=== PATIENT | female | born 2000 | race Caucasian/White ===

== ENCOUNTER 2023-03-26 12:39 | Inpatient (IN) | payer BC ==
[~2023-03-26] VITALS: Ht 162.6 cm; Wt 46.7 kg
--- NOTE | 2023-03-26 12:59 | NUR ---
AMBULATED TO BED IN NO DISTRESS.
[2023-03-26 13:00] VITALS: BP 103/63
[2023-03-26] MEDS ORDERED: diphenhydrAMINE 50 MG/ML VIAL IVP ONE (13:20)
[2023-03-26] MEDS ORDERED: METOCLOPRAMIDE 10 MG/2 ML INJ VIAL IVP ONE (13:20)
[2023-03-26] MEDS ORDERED: NACL 0.9% 1,000 ML IV ONE (13:20)
[2023-03-26 13:51] LABS: HEMOGLOBIN 12.9 g/dL (12.0-16.0); RED CELL DISTRIBUTION WIDTH 13.3 % (11.6-13.7)
[2023-03-26 13:52] LABS: APPEARANCE,URINE CLEAR (CLEAR); BILIRUBIN,URINE NEGATIVE (NEGATIVE); BLOOD, URINE TRACE-I (NEGATIVE); COLOR,URINE YELLOW (YELLOW); LEUKOCYTE ESTERASE ,URINE TRACE (NEGATIVE); NITRITE, URINE NEGATIVE (NEGATIVE); UGLUCOSE NEGATIVE (NEGATIVE)
--- NOTE | 2023-03-26 14:00 | NUR ---
22 y/o female refered here from Dr. Chavez's office. Patient is having nausea and vomiting with feeling faint. Patient is note actively vomiting at assessment. LMP 01/20/23 Medical History: Hyperemesis Gravidarum NKDA
[2023-03-26 14:03] LABS: BASOPHILS % (AUTO) 0.1 % (0.0-2.0); EOSINOPHILS # (AUTO) 0.1 K/uL (0-0.4); EOSINOPHILS % (AUTO) 0.9 % (0.0-4.0); HEMATOCRIT 36.9 % (36-48); LYMPHOCYTES # (AUTO) 1.8 K/uL (2.5-16.5); LYMPHOCYTES % (AUTO) 16.2 % (20.5-51.1); MEAN CORPUSCULAR HEMOGLOBIN 31 pg (27-31); MEAN CORPUSCULAR HGB CONC 35 g/dL (33-37); MEAN CORPUSCULAR VOLUME 87.6 fL (80-94); MONOCYTES # (AUTO) 0.5 K/uL (0.8-1.0); NEUTROPHILS # (AUTO) 8.6 K/uL (1.8-7.7); NEUTROPHILS % (AUTO) 77.8 % (42.2-75.2); PLATELET COUNT (AUTO) 244 K/uL (140-450); RED BLOOD CELL COUNT(AUTO) 4.21 MIL/uL (4.20-5.40)
[2023-03-26 14:10] LABS: RBC,URINE 0-5 /HPF (0-5); TRICHOMONAS,URINE None Seen /HPF (None Seen); YEAST,URINE None Seen /HPF (None Seen)
[2023-03-26 14:25] LABS: ALBUMIN 3.7 g/dL (3.4-5.0); ANION GAP 10.9 (8-16); CARBON DIOXIDE 25.9 mmol/L (21-32); CREATININE 0.6 mg/dL (0.6-1.3); POTASSIUM 3.8 mmol/L (3.5-5.1); TOTAL BILIRUBIN 0.5 mg/dL (0.0-1.0)
--- NOTE | 2023-03-26 14:40 | NUR ---
The patient's care was reviewed and supervised by GERI JOSEPH RN.
[2023-03-26] MEDS ORDERED: METO-485 PO (14:48)
[2023-03-26] MEDS ORDERED: CEPH-588 PO (14:48)
[2023-03-26] MEDS ORDERED: DIPH50CA69 PO (14:48)
--- NOTE | 2023-03-26 14:48 | NUR ---
med rec complete
[2023-03-26] MEDS ORDERED: LACTATED RINGERS 1,000 ML IV SCH (15:30)
[2023-03-26] MEDS ORDERED: LACTATED RINGERS 500 ML IV SCH (15:30)
--- NOTE | 2023-03-26 16:05 | NUR ---
Patient will be admitted to care of Dr. Chavez. Admited to [facility]. Will go to room 212. Belongings list completed. Report to SANDI Fajardo.
[2023-03-26 16:11] VITALS: BP 107/67
[2023-03-26] MEDS ORDERED: PANTOPRAZOLE 40 MG INJ VIAL ONE (16:28)
[2023-03-26] MEDS ORDERED: ONDANSETRON 4 MG/2 ML VIAL ONE (16:28)
[2023-03-26] MEDS ORDERED: cefTRIAXone 1,000 MG VIAL ONE (16:49)
[2023-03-26] MEDS: NACL 0.9% 1,000 ML IV SCH (16:52)
[2023-03-26] MEDS ORDERED: PRETAB PO (17:15)
[2023-03-26] MEDS ORDERED: diphenhydrAMINE 50 MG/ML VIAL IVP SCH (18:00)
[2023-03-26] MEDS ORDERED: diphenhydrAMINE 50 MG/ML VIAL ONE (20:36)
[2023-03-26] MEDS: METOCLOPRAMIDE 10 MG/2 ML INJ VIAL IVP SCH (20:44)
[2023-03-26] MEDS: diphenhydrAMINE 50 MG/ML VIAL IVP SCH (20:51)
[2023-03-26] MEDS: ONDANSETRON 4 MG/2 ML VIAL IVP SCH (22:38)
[2023-03-27] MEDS: NACL 0.9% 1,000 ML IV SCH ×5 (01:07→23:42)
[2023-03-27] MEDS: METOCLOPRAMIDE 10 MG/2 ML INJ VIAL IVP SCH ×4 (03:34→21:30)
[2023-03-27] MEDS: diphenhydrAMINE 50 MG/ML VIAL IVP SCH ×4 (03:36→22:30)
[2023-03-27] MEDS: ONDANSETRON 4 MG/2 ML VIAL IVP SCH ×3 (04:36→18:42)
--- NOTE | 2023-03-27 07:09 | NUR ---
PATIENT HAS BEEN SCREENED AND CATEGORIZED HIGH NUTRITION RISK. PATIENT WILL BE SEEN WITHIN 1-2 DAYS OF ADMISSION. 03/26/23-03/28/[address]
[2023-03-27] MEDS: PANTOPRAZOLE 40 MG INJ VIAL IVP SCH (09:25)
[2023-03-27] MEDS ORDERED: FAMOTIDINE 20 MG/2 ML VIAL IVP SCH (10:14)
[2023-03-27 11:02] LABS: ALBUMIN 3.3 g/dL (3.4-5.0); ANION GAP 8.2 (8-16); CARBON DIOXIDE 25.6 mmol/L (21-32); CREATININE 0.6 mg/dL (0.6-1.3); POTASSIUM 3.8 mmol/L (3.5-5.1); TOTAL BILIRUBIN 0.4 mg/dL (0.0-1.0)
[2023-03-27] MEDS: FAMOTIDINE 20 MG/2 ML VIAL IVP SCH (12:17)
--- NOTE | 2023-03-27 15:23 | NUR ---
03/27/23 RD INITIAL ASSESSMENT COMPLETED. PLEASE REFER TO NUTRITION ASSESSMENT UNDER CARE ACTIVITY FOR ESTIMATED NUTRITIONAL NEEDS. 1. CONTINUE REGULAR DIET TOLERATED 2. RECOMMEND ENSURE 1X/DAY TO OPTIMIZE NUTRITIONAL NEEDS 3. RD TO FOLLOW-UP 2-3 DAYS, HIGH RISK IVY NOGUEIRA RD
[2023-03-28] MEDS: FAMOTIDINE 20 MG/2 ML VIAL IVP SCH (00:14)
[2023-03-28] MEDS: ONDANSETRON 4 MG/2 ML VIAL IVP SCH ×2 (00:22→06:23)
[2023-03-28] MEDS: METOCLOPRAMIDE 10 MG/2 ML INJ VIAL IVP SCH ×2 (03:25→09:22)
[2023-03-28] MEDS: diphenhydrAMINE 50 MG/ML VIAL IVP SCH (04:28)
[2023-03-28] MEDS: PANTOPRAZOLE 40 MG INJ VIAL IVP SCH (09:25)
== END 2023-03-28 11:10 | disposition home or self-care (01) | DRG 566 ==
LOC: MED 12:39 → MTU 14:38 → MFCC 15:30
PROVIDERS: ADMIT Obstetrics & Gynecology; ATTEND Obstetrics & Gynecology
DX: O21.0 Mild hyperemesis gravidarum (principal); O23.41 Unspecified infection of urinary tract in pregnancy, first trimester; E86.0 Dehydration; Z20.822 Contact with and (suspected) exposure to COVID-19; Z3A.09 9 weeks gestation of pregnancy; N39.0 Urinary tract infection, site not specified
CPT/HCPCS: 36415; 76801; 80053; 81001; 83690; 84702; 85025; 87086; 96361; 96374; 96375; 99285; C9113; J0696; J1200; J2405; J2765; J3490; J7060; J7120; Q0092

== ENCOUNTER 2023-03-30 20:54 | Inpatient (IN) | payer BC ==
[~2023-03-30] VITALS: Ht 162.6 cm; Wt 46.3 kg
[~2023-03-30 20:54] MED LIST: DIPH50CA69 PO; METO-485 PO; PRETAB PO
--- NOTE | 2023-03-30 20:55 | NUR ---
PATIENT CALLED TO BE TRIAGE, NO RESPONSE PATIENT LEFT WITHOUT BEING SEEN BY DR. HEMPHILL. NO FURTHER CARE PROVIDED FOR PATIENT.
--- NOTE | 2023-03-30 21:00 | NUR ---
CALLED FOR THE SECOND TIME, NO RESPONSE
[2023-03-30 21:23] VITALS: BP 107/61
--- NOTE | 2023-03-30 21:30 | NUR ---
CALLED FOR THE THIRD TIME , NO RESPONSE
[2023-03-30] MEDS ORDERED: METO-486 PO (21:44)
[2023-03-30] MEDS ORDERED: PANT40PK PO (21:44)
[2023-03-30] MEDS ORDERED: DOXY1TCP PO (21:44)
[2023-03-30] MEDS ORDERED: DIPH25TA53 PO (21:44)
[2023-03-30 22:00] LABS: BASOPHILS % (AUTO) 0.1 % (0.0-2.0); EOSINOPHILS # (AUTO) 0.1 K/uL (0-0.4); EOSINOPHILS % (AUTO) 1.3 % (0.0-4.0); HEMOGLOBIN 11.2 g/dL (12.0-16.0); LYMPHOCYTES % (AUTO) 20.2 % (20.5-51.1); MEAN CORPUSCULAR HEMOGLOBIN 31 pg (27-31); MEAN CORPUSCULAR HGB CONC 35 g/dL (33-37); MEAN CORPUSCULAR VOLUME 87.3 fL (80-94); MONOCYTES # (AUTO) 0.7 K/uL (0.8-1.0); MONOCYTES % (AUTO) 7.4 % (1.7-9.3); NEUTROPHILS # (AUTO) 7.2 K/uL (1.8-7.7); PLATELET COUNT (AUTO) 220 K/uL (140-450); RED BLOOD CELL COUNT(AUTO) 3.67 MIL/uL (4.20-5.40); RED CELL DISTRIBUTION WIDTH 13.1 % (11.6-13.7); WHITE BLOOD COUNT (AUTO) 10.1 K/uL (4.8-10.8)
[2023-03-30 22:36] LABS: ALBUMIN 3.4 g/dL (3.4-5.0); CARBON DIOXIDE 27.8 mmol/L (21-32); CREATININE 0.6 mg/dL (0.6-1.3); POTASSIUM 3.8 mmol/L (3.5-5.1); TOTAL BILIRUBIN 0.2 mg/dL (0.0-1.0)
[2023-03-30] MEDS: LACTATED RINGERS 1,000 ML IV SCH ×2 (23:01→23:53)
[2023-03-30] MEDS: ONDANSETRON 4 MG/2 ML VIAL IVP SCH (23:59)
[2023-03-31] MEDS: LACTATED RINGERS 1,000 ML IV SCH ×3 (05:59→18:06)
[2023-03-31] MEDS: diphenhydrAMINE 50 MG/ML VIAL IVP SCH ×5 (06:00→23:57)
[2023-03-31] MEDS: ONDANSETRON 4 MG/2 ML VIAL IVP SCH ×4 (06:01→23:57)
[2023-03-31] MEDS: METOCLOPRAMIDE 10 MG/2 ML INJ VIAL IVP SCH ×2 (09:19→21:01)
[2023-03-31] MEDS: FAMOTIDINE 20 MG/2 ML VIAL IVP SCH ×2 (09:26→21:00)
--- NOTE | 2023-03-31 09:26 | NUR ---
PATIENT HAS BEEN SCREENED AND CATEGORIZED LOW NUTRITION RISK. PATIENT WILL BE SEEN WITHIN 7 DAYS OF ADMISSION. 04/06/23 REVIEWED BY [address]STINA S[address]Z RD
[2023-03-31] MEDS: PANTOPRAZOLE 40 MG INJ VIAL IVP SCH (09:29)
[2023-04-01] MEDS: LACTATED RINGERS 1,000 ML IV SCH ×2 (00:26→07:02)
[2023-04-01] MEDS: diphenhydrAMINE 50 MG/ML VIAL IVP SCH (05:58)
[2023-04-01] MEDS: ONDANSETRON 4 MG/2 ML VIAL IVP SCH (05:59)
[2023-04-01] MEDS: PANTOPRAZOLE 40 MG INJ VIAL IVP SCH (08:55)
[2023-04-01] MEDS: FAMOTIDINE 20 MG/2 ML VIAL IVP SCH (08:56)
[2023-04-01] MEDS: METOCLOPRAMIDE 10 MG/2 ML INJ VIAL IVP SCH (08:57)
== END 2023-04-01 09:10 | disposition home or self-care (01) | DRG 566 ==
LOC: MED 20:54 → MFCC 20:55 → MLD 21:03 → MFCC 21:20 → OBSVTOIN 21:23
PROVIDERS: ADMIT Obstetrics & Gynecology; ATTEND Obstetrics & Gynecology
DX: O21.0 Mild hyperemesis gravidarum (principal); D64.9 Anemia, unspecified; O99.011 Anemia complicating pregnancy, first trimester; Z20.822 Contact with and (suspected) exposure to COVID-19; Z79.899 Other long term (current) drug therapy; Z3A.10 10 weeks gestation of pregnancy
CPT/HCPCS: 36415; 80053; 85025; 99285; C9113; J1200; J2405; J2765; J3490

== ENCOUNTER 2023-04-02 15:26 | Emergency (ER) | payer BC ==
[~2023-04-02] VITALS: Ht 162.6 cm; Wt 46.9 kg
[~2023-04-02 15:26] MED LIST changes: +DIPH25TA53 PO; +DOXY1TCP PO; +METO-486 PO; +PANT40PK PO
[2023-04-02 15:51] VITALS: BP 116/74
--- NOTE | 2023-04-02 16:00 | NUR ---
PATIENT AMBULATED TO BED 4 WITH SIGNIFICANT OTHER.
--- NOTE | 2023-04-02 16:00 | NUR ---
here for nausea and vomiting, no abd pain, no distress noted, sr up times 2, pa at bs, o2 sat 98% ra
--- NOTE | 2023-04-02 16:07 | NUR ---
CONTACTED DR YAN FOR CONSULT, STATES IF IT IS DR HENSLEY'S PT TO CONTACT HIM.
[2023-04-02] MEDS ORDERED: NACL 0.9% 1,000 ML IV ONE (16:10)
[2023-04-02] MEDS ORDERED: ONDANSETRON 4 MG/2 ML VIAL IVP ONE (16:15)
[2023-04-02 16:25] LABS: BASOPHILS % (AUTO) 0.2 % (0.0-2.0); EOSINOPHILS % (AUTO) 0.3 % (0.0-4.0); HEMATOCRIT 35.5 % (36-48); HEMOGLOBIN 12.2 g/dL (12.0-16.0); LYMPHOCYTES # (AUTO) 1.1 K/uL (2.5-16.5); LYMPHOCYTES % (AUTO) 10.1 % (20.5-51.1); MEAN CORPUSCULAR HEMOGLOBIN 30 pg (27-31); MEAN CORPUSCULAR HGB CONC 34 g/dL (33-37); MEAN CORPUSCULAR VOLUME 87.8 fL (80-94); MONOCYTES # (AUTO) 0.6 K/uL (0.8-1.0); MONOCYTES % (AUTO) 5.5 % (1.7-9.3); NEUTROPHILS # (AUTO) 8.8 K/uL (1.8-7.7); NEUTROPHILS % (AUTO) 83.9 % (42.2-75.2); PLATELET COUNT (AUTO) 226 K/uL (140-450); RED BLOOD CELL COUNT(AUTO) 4.04 MIL/uL (4.20-5.40); WHITE BLOOD COUNT (AUTO) 10.5 K/uL (4.8-10.8)
[2023-04-02 16:39] LABS: ALBUMIN 3.8 g/dL (3.4-5.0); CARBON DIOXIDE 26.9 mmol/L (21-32); CREATININE 0.6 mg/dL (0.6-1.3); POTASSIUM 3.9 mmol/L (3.5-5.1); TOTAL BILIRUBIN 0.4 mg/dL (0.0-1.0)
[2023-04-02 17:43] LABS: APPEARANCE,URINE CLEAR (CLEAR); BILIRUBIN,URINE NEGATIVE (NEGATIVE); BLOOD, URINE NEGATIVE (NEGATIVE); COLOR,URINE YELLOW (YELLOW); LEUKOCYTE ESTERASE ,URINE NEGATIVE (NEGATIVE); NITRITE, URINE NEGATIVE (NEGATIVE); UGLUCOSE NEGATIVE (NEGATIVE)
[2023-04-02 18:58] VITALS: BP 102/66
--- NOTE | 2023-04-02 19:01 | NUR ---
Signed Against medical Advice w Dr Melara. pt a/o times 4, ambulatory and steady gait, no n/v, no abd pain, denies any further questions.
== END 2023-04-02 18:52 | disposition left against medical advice (07) ==
LOC: MED 15:26
DX: O21.1 Hyperemesis gravidarum with metabolic disturbance (principal); Z20.822 Contact with and (suspected) exposure to COVID-19; Z3A.10 10 weeks gestation of pregnancy
CPT/HCPCS: 36415; 80053; 81003; 85025; 87426; 96361; 96374; 99283; J2405; J7030

== ENCOUNTER 2023-10-11 10:30 | Inpatient (IN) | payer BC ==
[~2023-10-11] VITALS: Ht 162.6 cm; Wt 63.5 kg
[~2023-10-11 10:30] MED LIST changes: -DIPH25TA53 PO; -METO-486 PO
[2023-10-11] MEDS ORDERED: ONDANSETRON 4 MG/2 ML VIAL IVP PRN (11:10)
[2023-10-11] MEDS ORDERED: OXYTOCIN 20 UNITS in LACTATED RINGERS 1,000 ML IV SCH (11:10)
[2023-10-11 12:57] LABS: BASOPHILS % (AUTO) 0.2 % (0.0-2.0); EOSINOPHILS # (AUTO) 0.1 K/uL (0-0.4); EOSINOPHILS % (AUTO) 0.4 % (0.0-4.0); HEMATOCRIT 31.5 % (36-48); HEMOGLOBIN 10.6 g/dL (12.0-16.0); LYMPHOCYTES # (AUTO) 1.7 K/uL (2.5-16.5); LYMPHOCYTES % (AUTO) 13.5 % (20.5-51.1); MEAN CORPUSCULAR HEMOGLOBIN 30 pg (27-31); MEAN CORPUSCULAR HGB CONC 34 g/dL (33-37); MEAN CORPUSCULAR VOLUME 88.1 fL (80-94); MONOCYTES # (AUTO) 0.9 K/uL (0.8-1.0); MONOCYTES % (AUTO) 7.4 % (1.7-9.3); NEUTROPHILS # (AUTO) 9.8 K/uL (1.8-7.7); NEUTROPHILS % (AUTO) 78.5 % (42.2-75.2); PLATELET COUNT (AUTO) 189 K/uL (140-450); RED BLOOD CELL COUNT(AUTO) 3.57 MIL/uL (4.20-5.40); WHITE BLOOD COUNT (AUTO) 12.5 K/uL (4.8-10.8)
[2023-10-11] MEDS: LACTATED RINGERS 1,000 ML IV SCH ×2 (13:12→20:11)
[2023-10-11 13:23] VITALS: BP 121/64; PULSE 95; RESP 17; TEMP 97.9
[2023-10-11] MEDS ORDERED: AMPICILLIN 2,000 MG in NACL 0.9% 100 ML IV SCH (13:45)
[2023-10-11 13:52] LABS: ALBUMIN 2.4 g/dL (3.4-5.0); ANION GAP 12.1 (8-16); CALCIUM 8.9 mg/dL (8.5-10.1); CARBON DIOXIDE 26.6 mmol/L (21-32); CREATININE 0.6 mg/dL (0.6-1.3); POTASSIUM 3.7 mmol/L (3.5-5.1); TOTAL BILIRUBIN 0.4 mg/dL (0.0-1.0); TOTAL PROTEIN, SERUM 6.3 g/dL (6.4-8.2)
[2023-10-11 13:58] LABS: BILIRUBIN,URINE NEGATIVE (NEGATIVE); BLOOD, URINE 3+ (NEGATIVE); COLOR,URINE YELLOW (YELLOW); LEUKOCYTE ESTERASE ,URINE 2+ (NEGATIVE); NITRITE, URINE NEGATIVE (NEGATIVE); PH,URINE 6.5 (5.0-9.0); PROTEIN,URINE NEGATIVE (NEGATIVE); UGLUCOSE NEGATIVE (NEGATIVE); UROBILINOGEN,URINE 0.2 EU/dL (0.2 - 1)
[2023-10-11 14:02] LABS: INR 0.87 (0.8-1.2); PARTIAL THROMBOPLASTIN TIME 24.5 secs (22-35.6); PROTHROMBIN TIME 9.2 secs (10.8-13.4)
[2023-10-11] MEDS ORDERED: PNV1TABL PO (14:08)
[2023-10-11 14:35] LABS: WBC,URINE 20-60 /HPF (0-5)
[2023-10-11 14:37] LABS: BACTERIA,URINE FEW /HPF (None Seen); RBC,URINE 0-5 /HPF (0-5); SQUAMOUS EPITHELIAL CELL,UR 4-10 (MOD) /LPF (0-3 (FEW))
[2023-10-11 14:38] LABS: YEAST,URINE Few /HPF (None Seen)
[2023-10-11 14:39] LABS: APPEARANCE,URINE HAZY (CLEAR)
[2023-10-11 14:48] LABS: AMPHETAMINE, URINE NEGATIVE ng/ml (NEG <=1000); BARBITURATE, URINE NEGATIVE ng/ml (NEG <=200); BENZODIAZEPINE, URINE NEGATIVE ng/mL (NEG <=200); CANNABINOID, URINE NEGATIVE ng/mL (NEG <=50); COCAINE, URINE NEGATIVE ng/mL (NEG <=300); OPIATE, URINE NEGATIVE ng/mL (NEG <=2000); PHENCYCLIDINE SCREEN,URINE NEGATIVE ng/mL (NEG <=25)
[2023-10-11] MEDS: MORPHINE SULFATE 10 MG/ML VIAL IVP PRN ×2 (17:02→20:08)
[2023-10-11] MEDS ORDERED: AMPICILLIN 1,000 MG in NACL 0.9% 50 ML IV SCH (18:00)
[2023-10-11 20:08] VITALS: BP 114/67; PULSE 76; RESP 18
[2023-10-11] MEDS ORDERED: CARBOPROST 250 MCG/ML AMP IM ONE (20:40)
[2023-10-11] MEDS ORDERED: METHYLERGONOVINE 0.2 MG/ML AMP IM PRN (20:40)
[2023-10-11] MEDS ORDERED: LIDOCAINE MPF 1% 10 MG/ML VIAL INJ SCH (20:40)
[2023-10-11] MEDS ORDERED: LIDOCAINE 1% 500 MG/50 ML VIAL ONE (21:58)
[2023-10-11] MEDS ORDERED: METOCLOPRAMIDE 10 MG/2 ML INJ VIAL ONE (22:30)
[2023-10-11] MEDS ORDERED: TERBUTALINE 1 MG/ML VIAL SUBQ ONE (22:41)
[2023-10-11] MEDS ORDERED: ceFAZolin 2,000 MG VIAL ONE (23:26)
[2023-10-11] MEDS ORDERED: MORPHINE PRES FREE 10 MG/10 ML AMP IV ONE (23:32)
[2023-10-12] MEDS ORDERED: OXYTOCIN 20 UNITS/LR PREMIX 1,000 ML IV ONE ×2 (00:20→14:33)
[2023-10-12] MEDS: OXYTOCIN 20 UNITS/LR PREMIX 1,000 ML IV ONE ×2 (00:58→01:30)
[2023-10-12] MEDS ORDERED: MEASLES, MUMPS, AND RUBELLA 1 VIAL SQVAC ONE (01:15)
[2023-10-12] MEDS ORDERED: METHYLERGONOVINE 0.2 MG/ML AMP IM PRN (01:15)
[2023-10-12] MEDS ORDERED: bisacodyL 5 MG TABEC PO PRN (01:15)
[2023-10-12] MEDS ORDERED: oxyCODONE/APAP 5/325 MG 1 TAB TAB PO PRN (01:15)
[2023-10-12] MEDS ORDERED: SIMETHICONE 80 MG TAB.CHEW PO PRN (01:15)
[2023-10-12] MEDS ORDERED: diphenhydrAMINE 50 MG/ML VIAL IVP PRN (02:10)
[2023-10-12] MEDS ORDERED: diphenhydrAMINE 50 MG/ML VIAL ONE (02:16)
[2023-10-12] MEDS ORDERED: OXYTOCIN 20 UNITS in LACTATED RINGERS 1,000 ML IV SCH ×2 (02:40→14:30)
[2023-10-12] MEDS ORDERED: ONDANSETRON 4 MG/2 ML VIAL IVP PRN (07:10)
[2023-10-12] MEDS ORDERED: KETOROLAC 30 MG/ML VIAL IVP PRN (07:10)
[2023-10-12] MEDS: KETOROLAC 30 MG/ML VIAL IVP PRN ×2 (13:59→21:39)
[2023-10-13 06:01] LABS: BASOPHILS % (AUTO) 0.1 % (0.0-2.0); EOSINOPHILS # (AUTO) 0.1 K/uL (0-0.4); EOSINOPHILS % (AUTO) 0.3 % (0.0-4.0); HEMATOCRIT 28.2 % (36-48); HEMOGLOBIN 9.5 g/dL (12.0-16.0); LYMPHOCYTES % (AUTO) 10.3 % (20.5-51.1); MEAN CORPUSCULAR HEMOGLOBIN 30 pg (27-31); MEAN CORPUSCULAR HGB CONC 34 g/dL (33-37); MEAN CORPUSCULAR VOLUME 88.3 fL (80-94); MONOCYTES # (AUTO) 1.1 K/uL (0.8-1.0); MONOCYTES % (AUTO) 5.5 % (1.7-9.3); NEUTROPHILS # (AUTO) 16.4 K/uL (1.8-7.7); NEUTROPHILS % (AUTO) 83.8 % (42.2-75.2); PLATELET COUNT (AUTO) 168 K/uL (140-450); RED BLOOD CELL COUNT(AUTO) 3.19 MIL/uL (4.20-5.40); RED CELL DISTRIBUTION WIDTH 13.6 % (11.6-13.7); WHITE BLOOD COUNT (AUTO) 19.6 K/uL (4.8-10.8)
[2023-10-13] MEDS: KETOROLAC 30 MG/ML VIAL IVP PRN (06:13)
[2023-10-13] MEDS ORDERED: IBUPROFEN 800 MG TAB PO PRN (09:25)
[2023-10-13] MEDS ORDERED: CAMERA MC ONE (13:53)
== END 2023-10-13 17:45 | disposition home or self-care (01) | DRG 540 ==
LOC: MLD 10:30 → OBSVTOIN 11:07 → MFCC 10-12 01:49
PROVIDERS: ADMIT Obstetrics & Gynecology; ATTEND Obstetrics & Gynecology
PROC: 10D00Z1 Extraction of Products of Conception, Low, Open Approach (ICD-10-PCS; principal; 2023-10-12)
PROC: 3E0234Z Introduction of Serum, Toxoid and Vaccine into Muscle, Percutaneous Approach (ICD-10-PCS; 2023-10-12)
DX: O62.0 Primary inadequate contractions (principal); D62 Acute posthemorrhagic anemia; O41.03X0 Oligohydramnios, third trimester, not applicable or unspecified; O99.62 Diseases of the digestive system complicating childbirth; Z20.822 Contact with and (suspected) exposure to COVID-19; O90.81 Anemia of the puerperium; K21.9 Gastro-esophageal reflux disease without esophagitis; Z3A.38 38 weeks gestation of pregnancy; Z37.0 Single live birth
CPT/HCPCS: 36415; 51702; 76815; 80053; 80305; 81001; 85025; 85610; 85730; 86592; 86762; 86886; 86900; 86901; 87086; 87340; 87653-90; J1200; J1885; J2001; J2270; J2405; J2590; J2765; J3105; J7120; Q0092